=== PATIENT | female | born 1980 | race Caucasian/White ===

== ENCOUNTER 2016-08-16 03:20 | Emergency (ER) | payer MEDICARE, OTHER ==
--- NOTE | ~2016-08-16 | EKG ---
PATIENT: TRISTIN ACOSTA UNIT #: [id number] Ventricular Rate: 78 BPM Atrial Rate: 78 BPM P-R Interval: 168 ms QRS Duration: 100 ms Q-T Interval: 388 ms QTC Calculation(Bezet): 442 ms P [place]: 52 degrees Calculated R [place]: 23 degrees Calculated T [place]: 23 degrees Diagnosis Line: Normal sinus rhythm with sinus arrhythmia Diagnosis Line: Low voltage QRS Diagnosis Line: Otherwise normal ECG Diagnosis Line: When compared with ECG of 24-JUN-2015 12:31, Diagnosis Line: No significant change was found Diagnosis Line: Confirmed by CAESAR LING MD ([id number]) on 08/19/2016 Diagnosis Line: 9:34:15 AM INTERPRETING MD: ANURADHA MALAGON
--- NOTE | ~2016-08-16 | CR63 ---
[facility]. [facility] A Service [facility] RADIOLOGY TEXT RESULTS PATIENT: TRISTIN ACOSTA LOCATION: SED : 80 UNIT #: [id number] AGE: [address]: Kevin Machado MD SEX: F ORDER DR: [id number] [place] [id number] E MR#: [id number] Acc #: [id number] NAME: TRISTIN ACOSTA : 1980 SEX: F STUDY DATE/TIME: 08/16/2016 3:55 UNIT: SED ROOM: STUDY DESCRIPTION: CR Chest 2 View Attending Physician: Kevin Machado M.D. Ordering Physician: Kevin Machado M.D. Primary Care Physician: Henry Fermin M.D. MEDICAL IMAGING REPORT This report is preliminary unless electronic signature is present. EXAM 2-view chest HISTORY Acute chest pain and congestion, onset this morning. COMPARISON 06/22/2015 FINDINGS PA and lateral examination of the chest upright shows a good expansion of the parenchyma with a normal distribution of the pulmonary vascularity. There is no indication of congestion, effusion, infiltrate, tumor, or nodular density. The pleural reflections and diaphragmatic contours are normal. The cardiac silhouette and mediastinal anatomy is within normal limits. IMPRESSION Normal chest. Dictated by... Candido Boyd M.D. THIS IS AN ELECTRONICALLY VERIFIED REPORT Candido Boyd M.D. at 08/16/2016 5:56 AM TIANA/nato TD: 08/16/2016 05:29 JOB #: [id number] MEDICAL IMAGING REPORT [facility] A Service [facility] RADIOLOGY TEXT RESULTS PATIENT: TRISTIN ACOSTA LOCATION: SED : 80 UNIT #: [id number] AGE: [address]: Kevin Machado MD SEX: F ORDER DR: Page 1 of 1
[~2016-08-16 03:20] MED LIST: ALBUTEROL17 GM INH; ALEVE220 M1 PO; ALLEVE; AMOXICILLIN PO; ANAPROX; BACTRIM DS TABL1 TA1 PO; BACTRIM DS TABL1 TA2; BENTYL20 MG PO; BENZONATATE PO; CELEXA PO; CIPRO PO; FISH OIL300 MG PO; FLEXERIL PO; FLEXERIL10 MG PO; IBUPROFEN800 MG PO; LIDODERM30 EA TOP; MOTRIN600 MG PO; MUSCLE RELAXER; NAPROSYN500 MG PO; NAPROXEN; NAPROXEN PO; NO MEDICATIONS; PAIN MEDICATION PO; PERCOCET PO; PHENERGAN DM1 ML PO; PHENERGAN PO; PHENERGAN SUPP25 MG PR; PHENERGAN W/CO120 ML PO; PHENERGAN25 M1 PO; PHENERGAN25 MG PO; PRILOSEC PO; PRILOSEC20 M1 PO; PROMETHAZINE-D240 ML PO; ROBAXIN500 MG PO; ROBITUSSIN100 MG/52 PO; SKELAXIN PO; SYNTHROID PO; THYROID PILL; TUSSI PO; TUSSIONEX PENN480 ML PO; VICODIN 5/500 T1 TAB PO; VOLTAREN50 MG PO; VOLTAREN75 MG PO; ZANTAC PO; ZITHROMAX PO; ZITHROMAX1 G/PKT PO; ZOFRAN ODT4 MG; ZOFRAN ODT4 MG PO; [UNRECOGNIZED DRUG - REMARK]
[2016-08-16 03:28] LABS: BASOPHIL# 0.2 X10e3 (0-0.3); BASOPHIL% 2.7 % (0-2.5); EOSINOPHIL# 0.3 X10e3 (0-0.7); EOSINOPHIL% 4.2 % (0.0-7.0); HEMATOCRIT 41.1 % (35.0-45.0); HEMOGLOBIN 13.9 gm/dL (12.0-16.0); LYMPHOCYTE# 2.1 X10e3 (1.0-3.5); LYMPHOCYTE% 26.4 % (17.0-45.0); MEAN CORPUSCULAR HEMOGLOBIN 31.4 PG (28-34); MEAN CORPUSCULAR HGB CONC 33.7 g/dL (30-36); MEAN PLATELET VOLUME 7.6 FL (6.5-11.5); MONOCYTE# 0.5 X10e3 (0-1.0); MONOCYTE% 6.4 % (3.0-12.0); NEUTROPHIL# 4.8 X10e3 (1.5-7.1); NEUTROPHIL% 60.3 % (40-75); PLATELET COUNT 279 X10e3 (140-420); RED BLOOD COUNT 4.42 X10e (3.90-5.30); RED CELL DISTRIBUTION WIDTH 13.5 % (11.0-15.5); WHITE BLOOD COUNT 7.9 X10e3 (4.0-10.5)
[2016-08-16 03:29] LABS: DIFF IND NO
[2016-08-16 03:42] LABS: POC - CKMB <1.0 ng/mL (0.0-7.9)
[2016-08-16 03:43] LABS: POC - TROPONIN <0.05 ng/mL (<=0.05)
[2016-08-16 03:45] LABS: BUN/CREATININE RATIO 11.66; CALCIUM SERUM 9.1 mg/dL (8.4-10.2); CREATININE SERUM 1.2 mg/dL (0.6-1.4); GLOM FILT RATE Estimated 58.1 mL/min (>60); POTASSIUM 3.8 mmol/L (3.5-5.1)
== END 2016-08-16 04:52 | disposition home or self-care (01) ==
LOC: SED 03:20
PROVIDERS: Emergency Medicine
DX: H92.03 Otalgia, bilateral (principal); K21.9 Gastro-esophageal reflux disease without esophagitis; Z79.899 Other long term (current) drug therapy
CPT/HCPCS: 36415; 71020; 80048; 82553; 84484; 85025; 93005; 99283; 99284

== ENCOUNTER 2016-11-05 09:37 | Emergency (ER) | payer OTHER ==
--- NOTE | ~2016-11-05 | EKG ---
PATIENT: TRISTIN ACOSTA UNIT #: [id number] Ventricular Rate: 77 BPM Atrial Rate: 77 BPM P-R Interval: 164 ms QRS Duration: 90 ms Q-T Interval: 396 ms QTC Calculation(Bezet): 448 ms P [place]: 63 degrees Calculated R [place]: 14 degrees Calculated T [place]: 1 degrees Diagnosis Line: Normal sinus rhythm Diagnosis Line: Low voltage QRS Diagnosis Line: Cannot rule out Anterior infarct , age Diagnosis Line: undetermined Diagnosis Line: Abnormal ECG Diagnosis Line: When compared with ECG of 16-AUG-2016 03:10, Diagnosis Line: No significant change was found Diagnosis Line: Confirmed by BROWN SUAREZ MD ([id number]) on Diagnosis Line: 11/06/2016 2:49:17 PM INTERPRETING MD: DANIELA MALAGON
[2016-11-05] MEDS ORDERED: ALEVE220 M1 (09:45)
[2016-11-05] MEDS ORDERED: LEVOTHYROXINE75 MC1 PO (09:48)
[2016-11-05 11:09] LABS: URINE SOURCE CLEAN CATCH
[2016-11-05 11:12] LABS: URINE APPEARANCE CLEAR; URINE BILIRUBIN NEG (NEG); URINE BLOOD NEG (NEG); URINE COLOR YELLOW; URINE GLUCOSE NEG (NORM); URINE KETONE NEG (NEG); URINE LEUKOCYTE ESTERASE TRACE (NEG); URINE NITRATE NEG (NEG); URINE PROTEIN NEG (NEG); URINE SPECIFIC GRAVITY <=1.005 (1.003-1.035); URINE UROBILINOGEN 0.2 MG/DL (NORM)
[2016-11-05 11:13] LABS: MICRO INDICATED? YES
[2016-11-05 11:16] LABS: URINE RBC 0-2 /[HPF] (0-2)
[2016-11-05 11:17] LABS: CULTURE INDICATED? YES; URINE BACTERIA NEG (NEG); URINE HYALINE CAST 0-2 /[HPF]; URINE SQUAMOUS EPITHELIAL CELL MODERATE /[HPF]; URINE TRANSITIONAL EPI CELLS OCCAS /[HPF]; URINE WHITE BLOOD CELL CAST 0-2 /[HPF]
== END 2016-11-05 11:41 | disposition home or self-care (01) ==
LOC: SED 09:37
PROVIDERS: Emergency Medicine
DX: R55 Syncope and collapse (principal); R03.0 Elevated blood-pressure reading, without diagnosis of hypertension; F17.210 Nicotine dependence, cigarettes, uncomplicated; Z79.899 Other long term (current) drug therapy
CPT/HCPCS: 81003; 87086; 93005; 99284